=== PATIENT | male | born 1975 | race African-American/Black ===

== ENCOUNTER 2019-06-07 21:02 | Emergency (ER) | payer OTHER ==
[~2019-06-07] VITALS: Ht 172.7 cm; Wt 82.6 kg
[2019-06-07 21:47] LABS: ABSOLUTE BASOPHILS 0.3 thou/uL (0.0-0.2); ABSOLUTE EOSINOPHILS 0.7 thou/uL (0.0-0.7); ABSOLUTE LYMPHOCYTES 3.6 thou/uL (0.8-5.3); ABSOLUTE NEUTROPHILS 3.8 thou/uL (1.6-8.1); BASOPHILS 2.8 %; EOSINOPHILS 7.4 %; HEMATOCRIT 46.6 % (42.0-52.0); HEMOGLOBIN 15.7 gm/dL (14.0-18.0); MCH 28.1 pg (26.0-34.0); MCHC 33.7 g/dL (28.0-37.0); MCV 83.5 fL (80.0-100.0); MONOCYTES 10.5 %; MPV 8.2 fl. (7.2-11.1); NUCLEATED RBCS 0 /100WBC; PLATELET COUNT* 370 thou/uL (150-400); POLYS 40.3 %; RBC 5.59 mil/uL (4.50-6.00); RDW-CV 14.7 % (10.5-14.5); WBC 9.3 thou/uL (4.0-11.0)
[2019-06-07 22:01] LABS: AMP/METHAMP Negative (Negative); BARBITURATES Negative (Negative); BENZODIAZEPINES Negative (Negative); COCAINE Negative (Negative); METHADONE Negative (Negative); OPIATES Negative (Negative); PCP Negative (Negative); THC Negative (Negative)
[2019-06-07 22:03] LABS: CALCIUM 8.5 mg/dL (8.5-10.1); POTASSIUM 3.8 mmol/L (3.5-5.1)
[2019-06-07 22:08] LABS: ALBUMIN 4.1 g/dL (3.4-5.0); ALCOHOL 238 mg/dL (<10); SALICYLATE 2.7 mg/dL (2.8-20.0); TOTAL BILIRUBIN 0.3 mg/dL (<0.1-1.0); TOTAL PROTEIN 7.9 g/dL (6.4-8.2)
[2019-06-07 22:09] LABS: ACETAMINOPHEN < 2 ug/mL (10-30)
[2019-06-08 00:45] VITALS: BP 138/87
== END 2019-06-08 00:46 | disposition home or self-care (01) ==
LOC: M.ERS 21:02
PROVIDERS: Emergency Medicine
DX: F68.8 Other specified disorders of adult personality and behavior (principal)